=== PATIENT | female | born 2000 | race Caucasian/White ===

== ENCOUNTER 2019-10-08 15:53 | Emergency (ER) | payer SELFPAY ==
[~2019-10-08] VITALS: Ht 160 cm; Wt 63.6 kg
[2019-10-08 15:59] VITALS: BP 111/79; TEMP 98
[2019-10-08 16:45] VITALS: PULSE 83
== END 2019-10-08 16:45 | disposition home or self-care (01) ==
LOC: COL.ER 15:53
DX: S93.402A Sprain of unspecified ligament of left ankle, initial encounter (principal); F41.9 Anxiety disorder, unspecified; X50.1XXA Overexertion from prolonged static or awkward postures, initial encounter

== ENCOUNTER 2020-09-29 13:26 | Emergency (ER) | payer OTHER ==
[~2020-09-29] VITALS: Ht 160 cm; Wt 63.6 kg
[2020-09-29 13:30] VITALS: TEMP 98.6
[2020-09-29 14:58] LABS: BASO # 0.1 (0.0-0.2); EOS # 0.2 (0.0-0.7); EOS % 2.6 % (0-4.0); GRAN # 3.5 (1.4-6.5); GRAN % 60.3 % (42.2-75.2); HEMATOCRIT 38.7 % (37.0-47.0); HEMOGLOBIN 12.2 g/dl (12.5-16.0); LYMPH # 1.6 (1.2-3.4); LYMPH % 27.5 % (20.0-51.0); MEAN CELL VOLUME 86 fl (80.0-100.0); MEAN CORPUSCULAR HEMOGLOBIN 27 pg (27.0-31.0); MEAN CORPUSCULAR HGB CONC 32 g/dl (33.0-37.0); MEAN PLATELET VOLUME 9.5 fl (7.4-10.4); MONO # 0.5 (0.1-0.6); MONO % 8.4 % (1.7-9.3); PLATELET COUNT 260 K/mm3 (130-400); RED BLOOD COUNT 4.52 M/mm3 (4.10-5.30); REDCELL DISTRIBUTION WIDTH-CV 12.7 % (11.5-14.5)
[2020-09-29 15:08] LABS: ALANINE AMINOTRANSFERASE 13 U/L (4-34); ALBUMIN 4.3 gm/dL (3.5-5.0); ALKALINE PHOSPHATASE 84 U/L (50-136); ANION GAP 7 mmol/L (7-16); AST,SGOT 37 U/L (15-37); BILIRUBIN,TOTAL 0.1 mg/dL (0.0-1.0); BLOOD UREA NITROGEN 14 mg/dL (7-17); CALCIUM 8.7 mg/dL (8.4-10.2); CARBON DIOXIDE 21 mmol/L (22-30); CHLORIDE 110 mmol/L (98-107); CREATININE, serum 0.69 (0.52-1.25); GLUCOSE 87 mg/dL (74-106); SODIUM 138 mmol/L (137-145); TOTAL PROTEIN 7.7 gm/dL (6.4-8.2)
[2020-09-29 15:27] LABS: TROPONIN-I < 0.012 ng/mL (0.000-0.035)
[2020-09-29 15:29] LABS: COLLECTION METHOD CLEAN CATCH
[2020-09-29 15:37] LABS: MUCOUS Present /lpf; PH 5 (5-8); SQUAMOUS EPITHELIAL 0-2 /hpf; URINE APPEARANCE Hazy; URINE BACTERIA None Seen /hpf; URINE BILIRUBIN Negative (NEGATIVE); URINE BLOOD 3+ (NEGATIVE); URINE COLOR Yellow; URINE GLUCOSE Negative (NEGATIVE); URINE KETONE Negative (NEGATIVE); URINE LEUKOCYTE ESTERASE Negative (NEGATIVE); URINE NITRATE Negative (NEGATIVE); URINE PROTEIN(semi-quant) Negative (NEGATIVE); URINE RBC >50 /hpf; URINE UROBILINOGEN Negative (NEGATIVE)
[2020-09-29 17:07] VITALS: BP 117/86; PULSE 74
== END 2020-09-29 17:08 | disposition home or self-care (01) ==
LOC: COL.ER 13:26
PROVIDERS: Emergency Medicine
DX: R55 Syncope and collapse (principal); Z32.02 Encounter for pregnancy test, result negative